=== PATIENT | male | born 1960 | race American Indian/Alaskan Native ===

== ENCOUNTER 2017-09-22 22:01 | Emergency (ER) | payer BC ==
[2017-09-22 23:13] VITALS: BP 130/91
[2017-09-23] MEDS ORDERED: GUAIFENESIN DM SYRUP PO ONE (00:32)
[2017-09-23] MEDS ORDERED: TESSALON PERLES PO ONE (00:32)
--- NOTE | 2017-09-23 00:44 | Emergency Department Report ---
- General Chief Complaint: Upper Respiratory Infection Stated Complaint: SOB Time Seen by Provider: 09/23/17 00:16 Source: patient Mode of arrival: Ambulatory Limitations: No Limitations - History of Present Illness Initial Comments: 57-year-old [place] male comes in reporting sinus drainage down the throat at night for 3 days. Patient reports that this wakes him up. He complains of cough and he has tried taking Mucinex but reports it has not helped. He does report a past medical history of asthma but has not been using his inhaler. He denies any rhinorrhea headache and nasal congestion but does admit that he is wheeze. He reports that this cough is worse at night and feels like he is choking on mucus when he lays flat or on his back. MD Complaint: cough -: days(s) (3) Consistency: intermittent Improves With: nothing Worsens With: changing head position Associated Symptoms: denies other symptoms Treatments Prior to Arrival: "cold medicine" (Mucinex) - Related Data Previous Rx's Medication Instructions Recorded Last Taken Type Benzonatate [Tessalon Perles] 100 mg PO Q8HR #15 capsule 09/23/17 Unknown Rx Allergies Allergy/AdvReac Type Severity Reaction Status Date / Time No Known Allergies Allergy Unverified 09/23/17 02:56 ED Review of Systems ROS: Stated complaint: SOB Other details as noted in HPI Comment: All other systems reviewed and negative Respiratory: cough, wheezing ED Past Medical Hx - Past Medical History Previous Medical History?: Yes Hx Asthma: Yes - Surgical History Past Surgical History?: No - Social History Smoking Status: Never Smoker Substance Use Type: None - Medications Home Medications: Home Medications Medication Instructions Recorded Confirmed Last Taken Type Benzonatate [Tessalon Perles] 100 mg PO Q8HR #15 capsule 09/23/17 Unknown Rx ED Physical Exam - General Limitations: No Limitations General appearance: alert, in no apparent distress - Head Head exam: Present: atraumatic, normocephalic - Eye Eye exam: Present: normal appearance - ENT ENT exam: Present: mucous membranes moist - Neck Neck exam: Present: normal inspection - Respiratory Respiratory exam: Present: normal lung sounds bilaterally. Absent: respiratory distress - Cardiovascular Cardiovascular Exam: Present: regular rate, normal rhythm. Absent: systolic murmur, diastolic murmur, rubs, gallop - GI/Abdominal GI/Abdominal exam: Present: soft, normal bowel sounds - Rectal Rectal exam: Present: deferred - Extremities Exam Extremities exam: Present: normal inspection - Back Exam Back exam: Present: normal inspection - Neurological Exam Neurological exam: Present: alert, oriented X3 - Psychiatric Psychiatric exam: Present: normal affect, normal mood - Skin Skin exam: Present: warm, dry, intact, normal color. Absent: rash ED Course Vital Signs 09/22/17 23:09 Temperature 98.2 F Pulse Rate 79 Blood Pressure 130/91 O2 Sat by Pulse 97 Oximetry ED Medical Decision Making - Radiology Data Radiology results: report reviewed Chest x-ray Impression: #1. Mild streaky opacity at the left lung base, in keeping with mild developing infiltrate. 2. 4-5 mm nodular density overlying a lower thoracic vertebral body, seen on the lateral radiograph only. Non-emergent CT of chest is suggested for further evaluation. - Medical Decision Making Patient has been evaluated by this provider fast track. I discussed the patient will order a chest x-ray. Critical care attestation.: If time is entered above; I have spent that time in minutes in the direct care of this critically ill patient, excluding procedure time. ED Disposition Clinical Impression: Pneumonia involving left lung Qualifiers: Pneumonia type: due to unspecified organism Lung location: lower lobe of lung Qualified Code(s): J18.1 - Lobar pneumonia, unspecified organism Disposition: DC-01 TO HOME OR SELFCARE Is pt being admited?: No Does the pt Need Aspirin: No Condition: Stable Instructions: Bacterial Pneumonia (ED) Additional Instructions: Please follow up with her primary care provider for repeat chest x-ray. Please discuss with here primary care provider that there is suggestion of a CT of her chest secondary to a nodular density overlying a lower thoracic vertebral body. Please increase your fluid intake, take Tessalon Perles to help with her cough. Please use her inhaler as needed for shortness of breathing wheezing. You can take Tylenol or Motrin for any pain. Prescriptions: Benzonatate [Tessalon Perles] 100 mg PO Q8HR #15 capsule Referrals: PRIMARY CARE, [Primary Care Provider] - 3-5 Days [facility] [Outside] - 3-5 Days
[2017-09-23] MEDS ORDERED: [UNRECOGNIZED DRUG - OTHER] IM ONE (02:51)
[2017-09-23] MEDS ORDERED: BICILLIN L-A IM ONE ×2 (03:07→03:10)
--- NOTE | 2017-09-27 14:16 | XRay Report ---
FINAL REPORT EXAM: XR CHEST ROUTINE 2V HISTORY: Cough and wheezing. TECHNIQUE: Frontal and lateral radiographs of the chest were obtained. No prior studies are available for comparison. FINDINGS: The cardiac silhouette and mediastinum are within normal limits. There are mild streaky opacities at the left lung base, in keeping with mild developing infiltrate. A 2 mm calcified granuloma is seen in the lateral right midlung. On the lateral radiograph, there is a 4-5 mm rounded nodular density overlying a lower thoracic vertebral body, not definitely seen on the frontal projection. There is no pleural effusion or pneumothorax. Moderate spondylotic changes are seen in the spine. IMPRESSION: 1. Mild streaky opacities at the left lung base, in keeping with mild developing infiltrate. 2. 4-5 mm nodular density overlying a lower thoracic vertebral body, seen on the lateral radiograph only. (Nonemergent) chest CT is suggested for further evaluation.
== END 2017-09-23 03:40 | disposition home or self-care (01) ==
LOC: ED 22:01
DX: J18.1 Lobar pneumonia, unspecified organism (principal); J45.909 Unspecified asthma, uncomplicated
CPT/HCPCS: 71046; 96372; 99283; J0561

== ENCOUNTER 2017-09-26 23:55 | Emergency (ER) | payer BC ==
[2017-09-27 00:44] LABS: Basophils # (Auto) 0.1 K/mm3 (0.0-0.1); Basophils % (Auto) 0.6 % (0.0-1.8); Eosinophils # (Auto) 0.2 K/mm3 (0.0-0.4); Eosinophils % (Auto) 1.8 % (0.0-4.3); Lymphocytes # (Auto) 2.7 K/mm3 (1.2-5.4); Lymphocytes % (Auto) 30.2 % (13.4-35.0); Mean Corpuscular HGB Conc 32 % (32-34); Mean Corpuscular Volume 74 fl (84-94); Monocytes # (Auto) 0.8 K/mm3 (0.0-0.8); Monocytes % (Auto) 8.6 % (0.0-7.3); Platelet Count 184 K/mm3 (140-440); Red Blood Count 5.92 M/mm3 (3.65-5.03); Red Cell Distribution Width 15.2 % (13.2-15.2)
[2017-09-27 00:58] LABS: Mean Corpuscular Hemoglobin 24 pg (28-32)
[2017-09-27 01:05] LABS: BUN/Creatinine Ratio 15; Blood Urea Nitrogen 19 mg/dL (9-20); Calcium 9.6 mg/dL (8.4-10.2); Hemolysis Index 4
[2017-09-27 10:09] VITALS: BP 123/81
--- NOTE | 2017-09-27 10:30 | Emergency Department Report ---
ED General Adult HPI - General Chief complaint: Dyspnea/Respdistress Stated complaint: COUGH Time Seen by Provider: 09/27/17 10:21 Source: patient Mode of arrival: Ambulatory Limitations: No Limitations - History of Present Illness Initial comments: Patient is 57 years old male with no significant past medical history. Patient presented to the ER for the second time for the same complaint since last week patient was diagnosed with left lower lobe pneumonia and given a penicillin shot according to him and he went to follow up with his primary care physician who added Levaquin and give him a steroid shot. Patient stated that his cough is increased. He denied any nausea or vomiting. No fever. Patient denied any shortness of breath also. Severity scale (0 -10): 7 - Related Data Previous Rx's Medication Instructions Recorded Last Taken Type Benzonatate [Tessalon Perles] 100 mg PO Q8HR #15 capsule 09/23/17 Unknown Rx Allergies Allergy/AdvReac Type Severity Reaction Status Date / Time No Known Allergies Allergy Verified 09/23/17 03:12 ED Review of Systems ROS: Stated complaint: COUGH Other details as noted in HPI Comment: All other systems reviewed and negative Constitutional: denies: chills, fever Respiratory: cough. denies: orthopnea, shortness of breath, SOB with exertion, SOB at rest Cardiovascular: denies: chest pain, palpitations Gastrointestinal: denies: abdominal pain, nausea, vomiting, diarrhea, constipation, hematemesis, melena, hematochezia Skin: denies: rash Neurological: denies: headache, weakness, numbness, paresthesias, confusion, abnormal gait ED Past Medical Hx - Past Medical History Previous Medical History?: Yes Hx Asthma: Yes - Surgical History Past Surgical History?: No - Social History Smoking Status: Never Smoker Substance Use Type: None - Medications Home Medications: Home Medications Medication Instructions Recorded Confirmed Last Taken Type Benzonatate [Tessalon Perles] 100 mg PO Q8HR #15 capsule 09/23/17 Unknown Rx ED Physical Exam - General Limitations: No Limitations General appearance: alert, in no apparent distress - Head Head exam: Present: atraumatic, normocephalic, normal inspection - Eye Eye exam: Present: normal appearance - ENT ENT exam: Present: normal exam, normal orophraynx, mucous membranes moist, TM's normal bilaterally, normal external ear exam - Neck Neck exam: Present: normal inspection, full ROM. Absent: tenderness, meningismus, lymphadenopathy, thyromegaly - Respiratory Respiratory exam: Present: normal lung sounds bilaterally. Absent: respiratory distress, wheezes, rales, rhonchi, stridor, chest wall tenderness, accessory muscle use, decreased breath sounds, prolonged expiratory - Cardiovascular Cardiovascular Exam: Present: regular rate, normal rhythm, normal heart sounds - GI/Abdominal GI/Abdominal exam: Present: soft. Absent: distended, tenderness, guarding, rebound, rigid, organomegaly, mass, bruit, pulsatile mass, hernia - Extremities Exam Extremities exam: Present: normal inspection, full ROM, normal capillary refill. Absent: pedal edema, calf tenderness - Back Exam Back exam: Present: normal inspection, full ROM. Absent: CVA tenderness (R), CVA tenderness (L), muscle spasm, paraspinal tenderness, vertebral tenderness, rash noted - Neurological Exam Neurological exam: Present: alert, oriented X3, CN II-XII intact, normal gait - Skin Skin exam: Present: warm, intact, normal color. Absent: cyanosis ED Course Vital Signs 09/27/17 09/27/17 09/27/17 00:06 04:04 07:25 Temperature 97.9 F 97.6 F 98.8 F Pulse Rate 86 81 72 Respiratory 20 18 16 Rate Blood Pressure 145/94 155/92 147/97 Blood Pressure [Left] O2 Sat by Pulse 96 97 100 Oximetry 09/27/17 09/27/17 09/27/17 08:08 10:00 10:04 Temperature 97.9 F Pulse Rate 80 82 Respiratory 18 20 20 Rate Blood Pressure Blood Pressure 193/133 123/81 [Left] O2 Sat by Pulse 99 93 99 Oximetry ED Medical Decision Making - Lab Data Result diagrams: 09/27/17 00:22 09/27/17 00:22 - Radiology Data Radiology results: report reviewed Chest x-ray show a left lower lobe infiltrate. Critical care attestation.: If time is entered above; I have spent that time in minutes in the direct care of this critically ill patient, excluding procedure time. ED Disposition Clinical Impression: Pneumonia involving left lung, Cough Disposition: DC-01 TO HOME OR SELFCARE Is pt being admited?: No Condition: Stable Instructions: Community-acquired Pneumonia (ED) Referrals: ADALBERTO BENAVIDES MD [Primary Care Provider] - 3-5 Days
--- NOTE | 2017-09-27 14:04 | XRay Report ---
FINAL REPORT EXAM: XR CHEST ROUTINE 2V HISTORY: Shortness of breath TECHNIQUE: 2 views of the chest. PRIORS: None. FINDINGS: The cardiomediastinal silhouette appears normal. There is a persistent left basilar opacity consistent with atelectasis or infiltrate without change. The bones and soft tissues are unremarkable. IMPRESSION: Stable chest x-ray, left basilar opacity consistent with atelectasis or infiltrate
== END 2017-09-27 10:49 | disposition home or self-care (01) ==
LOC: ED 23:55
DX: J18.1 Lobar pneumonia, unspecified organism (principal); J45.909 Unspecified asthma, uncomplicated
CPT/HCPCS: 36415; 71046; 80048; 85025; 93005; 93010; 99284